=== PATIENT | male | born 1970 | race Caucasian/White ===

== ENCOUNTER 2023-12-26 06:25 | Day surgery (SDC) | payer OTHER, SELFPAY ==
[2023-12-26 12:03] VITALS: BMI 32.6
[2023-12-26 12:04] VITALS: BMI 32.6
[2023-12-26 12:21] VITALS: BP 151/88
[2023-12-26 13:49] VITALS: BP 106/75
[2023-12-26 14:00] VITALS: BP 102/63
[2023-12-26 14:16] VITALS: BP 108/60
== END 2023-12-26 14:41 | disposition home or self-care (01) ==
LOC: GI 06:25
PROVIDERS: ATTENDING PHYSICIAN Internal Medicine Gastroenterology
DX: D12.2 Benign neoplasm of ascending colon (principal); K63.89 Other specified diseases of intestine; K64.0 First degree hemorrhoids
CPT/HCPCS: 45390; 45385; 88305